=== PATIENT | female | born 1960 | race Hispanic/Latino ===

== ENCOUNTER 2018-10-07 13:22 | Inpatient (IN) | payer MEDICAID, OTHER ==
[~2018-10-07] VITALS: Ht 157.5 cm; Wt 91.0 kg
[2018-10-07 16:00] LABS: BASOPHILS % (AUTO) 1.4 % (0.0-5.0); EOSINOPHILS % (AUTO) 1.2 % (0.0-8.0); HEMATOCRIT 37.5 % (36-48); LYMPHOCYTES % (AUTO) 22.7 % (21.0-51.0); MEAN CORPUSCULAR HEMOGLOBIN 27.9 pg (27.0-33.0); MEAN CORPUSCULAR HGB CONC 32.7 g/dL (32.0-36.0); MEAN CORPUSCULAR VOLUME 85.3 fL (79-99); MONOCYTES % (AUTO) 6.2 % (3.0-13.0); NEUTROPHILS % (AUTO) 68.5 % (40.0-77.0); PLATELET COUNT (AUTO) 302 K/uL (130-400); RED BLOOD CELL COUNT(AUTO) 4.39 MIL/uL (4.00-5.50); RED CELL DISTRIBUTION WIDTH 14.7 % (11.0-15.5); WHITE BLOOD COUNT (AUTO) 15.2 K/uL (4.8-10.8)
[2018-10-07 16:04] LABS: APPEARANCE,URINE Clear (CLEAR); BILIRUBIN,URINE Negative (NEGATIVE); COLOR,URINE Yellow (YELLOW); GLUCOSE, URINE (UA) Negative (NEGATIVE); KETONES,URINE Negative (NEGATIVE); LEUKOCYTE ESTERASE ,URINE Negative (NEGATIVE); NITRATE,URINE Negative (NEGATIVE); OCCULT BLOOD,URINE Negative (NEGATIVE); PH,URINE 7.5 (5.0-8.0); PROTEIN,URINE Negative (NEGATIVE); UROBILINOGEN,URINE 0.2 mg/dL (0.2-1.0)
[2018-10-07 16:06] LABS: HCG,QUAL RESULT NEGATIVE (NEGATIVE)
[2018-10-07 16:18] LABS: CREATININE 0.7 mg/dL (0.5-1.5); POTASSIUM 3.8 mmol/L (3.5-5.1)
[2018-10-07 16:19] LABS: B-TYPE NATRIURETIC PEPTIDE 57 pg/mL (0-100)
[2018-10-07 16:22] LABS: ALBUMIN 3.6 g/dL (3.5-5.0); BILIRUBIN,TOTAL 0.4 mg/dL (0.2-1.0); TOTAL PROTEIN, SERUM 6.9 g/dL (6.0-8.3)
[2018-10-07] MEDS ORDERED: IOHEXOL-350 75 ML VIAL IV ONE (16:54)
[2018-10-07] MEDS ORDERED: ASPIRIN 325 MG TABLET ONE (19:14)
[2018-10-07] MEDS ORDERED: ONDANSETRON HCL 4 MG/2 ML VIAL IV PRN (19:30)
[2018-10-07] MEDS ORDERED: NITROGLYCERIN 0.4 MG SL TAB SL PRN (19:30)
[2018-10-07] MEDS ORDERED: ACETAMINOPHEN 325 MG TAB PO PRN (19:30)
[2018-10-07 20:05] LABS: AMPHET/METH SCREEN,URINE NEGATIVE (NEGATIVE); BARBITURATE SCREEN, URINE NEGATIVE (NEGATIVE); BENZODIAZEPINES SCREEN,URINE NEGATIVE (NEGATIVE); CANNABINOID SCREEN,URINE NEGATIVE (NEGATIVE); COCAINE SCREEN,URINE NEGATIVE (NEGATIVE); OPIATE SCREEN,URINE NEGATIVE (NEGATIVE); PHENCYCLIDINE SCREEN,URINE NEGATIVE (NEGATIVE)
[2018-10-07] MEDS ORDERED: METOPROLOL TARTRATE 25 MG TAB ONE (20:51)
[2018-10-07] MEDS ORDERED: FAMOTIDINE 20MG TAB 20 MG TAB ONE (20:51)
[2018-10-07] MEDS ORDERED: METOPROLOL TARTRATE 25 MG TAB PO SCH (21:00)
[2018-10-07 21:14] LABS: TROPONIN I 0.33 ng/mL (0.00-0.06)
[2018-10-07] MEDS ORDERED: HYDRALAZINE HCL 20 MG/ML VIAL IV PRN (21:15)
[2018-10-07] MEDS: SODIUM CHLORIDE 0.9% 1000ML 1,000 ML IV SCH (22:05)
[2018-10-07] MEDS: FAMOTIDINE 20MG TAB 20 MG TAB PO SCH (22:05)
[2018-10-07 22:32] VITALS: BP 161/89
[2018-10-07] MEDS ORDERED: POTASSIUM CHLORIDE 20MEQ/100ML 100 ML IV PRN (22:45)
[2018-10-07] MEDS ORDERED: MAGNESIUM 2GM PREMIX 50ML 50 ML IV PRN (22:45)
[2018-10-07] MEDS ORDERED: POTASSIUM CHLORIDE 10% ELIXIR 20 MEQ/15 ML UDCUP PO PRN (22:45)
[2018-10-07] MEDS ORDERED: LIDOCAINE HCL-MPF 1% 2ML VIAL IVP PRN (22:45)
[2018-10-08 00:07] VITALS: BP 147/80
[2018-10-08] MEDS: ACETAMINOPHEN 325 MG TAB PO PRN ×2 (01:05→07:03)
[2018-10-08] MEDS: POTASSIUM CHLORIDE 20 MEQ ERTAB PO PRN ×2 (01:39→04:40)
[2018-10-08 03:52] VITALS: BP 124/73
[2018-10-08 05:40] LABS: BASOPHILS % (AUTO) 0.7 % (0.0-5.0); HEMATOCRIT 37.7 % (36-48); LYMPHOCYTES % (AUTO) 31.9 % (21.0-51.0); MEAN CORPUSCULAR HEMOGLOBIN 28.7 pg (27.0-33.0); MEAN CORPUSCULAR HGB CONC 33.3 g/dL (32.0-36.0); MEAN CORPUSCULAR VOLUME 86.1 fL (79-99); MONOCYTES % (AUTO) 6.7 % (3.0-13.0); NEUTROPHILS % (AUTO) 58.7 % (40.0-77.0); PLATELET COUNT (AUTO) 281 K/uL (130-400); RED BLOOD CELL COUNT(AUTO) 4.38 MIL/uL (4.00-5.50); RED CELL DISTRIBUTION WIDTH 14.8 % (11.0-15.5); WHITE BLOOD COUNT (AUTO) 11.7 K/uL (4.8-10.8)
[2018-10-08 06:07] LABS: ALBUMIN 3.4 g/dL (3.5-5.0); BILIRUBIN,TOTAL 0.4 mg/dL (0.2-1.0); CREATININE 0.8 mg/dL (0.5-1.5); MAGNESIUM 2.4 mg/dL (1.80-2.40); POTASSIUM 4.2 mmol/L (3.5-5.1); TOTAL PROTEIN, SERUM 6.9 g/dL (6.0-8.3); TROPONIN I 0.25 ng/mL (0.00-0.06)
[2018-10-08 08:00] VITALS: BP 161/85
[2018-10-08] MEDS: METOPROLOL TARTRATE 25 MG TAB PO SCH ×2 (09:07→21:00)
[2018-10-08] MEDS: FAMOTIDINE 20MG TAB 20 MG TAB PO SCH ×2 (09:07→21:00)
[2018-10-08] MEDS: ASPIRIN 325MG EC TAB 325 MG TABLET.DR PO SCH (09:08)
[2018-10-08] MEDS: ENOXAPARIN SODIUM 30 MG/0.3 ML SQ SCH (09:10)
[2018-10-08 11:00] VITALS: BP 161/89
--- NOTE | 2018-10-08 13:02 | NUR ---
DCP CM met with pt discussed dc plans. Pt is independent prior to admission, lives at home alone, from [place], currently visiting family. Denies any equipments/services. Pt feels safe to go back home, still drives, son and family able to assist with transportation and needs as necessary. DC plan to home once stable. CM to cont to follow up. Addendum: 10/08/18 at 1304 by CLAUDIO MIKE LVN CM Amended: Links added.
[2018-10-08 16:00] VITALS: BP 148/75
[2018-10-08] MEDS: AMLODIPINE BESYLATE 5 MG TAB PO SCH (18:34)
--- NOTE | 2018-10-08 19:30 | NUR ---
PM Assessment Received pt with family relatives at the bedside,NS at 100cc/hr infusing well, routine assessment done, pt reminded to remain NPO till U/S of the abdomen will be done later tonight as reported.Plan of care discuss, denies discomfort at this time.
[2018-10-08 20:00] VITALS: BP 134/78
[2018-10-08] MEDS: SODIUM CHLORIDE 0.9% 1000ML 1,000 ML IV SCH (23:47)
[2018-10-09] VITALS: BP 120/75
[2018-10-09] MEDS: ACETAMINOPHEN 325 MG TAB PO PRN ×2 (02:54→08:15)
[2018-10-09 04:00] VITALS: BP 118/76
[2018-10-09 08:00] VITALS: BP 145/75
[2018-10-09] MEDS: FAMOTIDINE 20MG TAB 20 MG TAB PO SCH (08:15)
[2018-10-09] MEDS: ASPIRIN 325MG EC TAB 325 MG TABLET.DR PO SCH (08:15)
[2018-10-09] MEDS: METOPROLOL TARTRATE 25 MG TAB PO SCH (08:15)
[2018-10-09] MEDS: AMLODIPINE BESYLATE 5 MG TAB PO SCH (08:15)
[2018-10-09] MEDS: ENOXAPARIN SODIUM 30 MG/0.3 ML SQ SCH (08:17)
[2018-10-09 12:00] VITALS: BP 121/75
[2018-10-09] MEDS ORDERED: METO25TA6 PO (15:50)
[2018-10-09] MEDS ORDERED: AMLO5TAB9 PO (15:51)
[2018-10-09 16:00] VITALS: BP 129/75
--- NOTE | 2018-10-09 16:30 | NUR ---
DISCHARGE INSTRUCTION PROVIDED TO PT . INFORMATION GIVEN ON HIGH BLOOD PRESSURE PRESCRIPTION PROVIDED ,AND IMPORTANCE TO EAT LOW FAT DIETS TO HELP WITH BLOOD PRESSURE AND CHOLESTROL LEVELS .. PATIENT AND SON VERBILIZED UNDERSTANDING
== END 2018-10-09 16:58 | disposition home or self-care (01) | DRG 305 ==
LOC: EDH 13:22 → EDHIP 13:23 → OBSVTOIN 13:23 → INTOOBSV 13:23 → 3DH 21:50
PROVIDERS: ADMIT Internal Medicine; ATTEND Internal Medicine
DX: I16.1 Hypertensive emergency (principal); D72.829 Elevated white blood cell count, unspecified; E66.01 Morbid (severe) obesity due to excess calories; R00.1 Bradycardia, unspecified; Z68.36 Body mass index [BMI] 36.0-36.9, adult
CPT/HCPCS: 36415; 70450; 70496; 70498; 71045; 76705; 80053; 80061; 80305; 81003; 81025; 82550; 83690; 83735; 83874; 83880; 84484; 85025; 87040; 93005; G0378; J0360; J1650; J2405; J3475; J7030; Q9967